=== PATIENT | male | born 1985 | race Two or more races ===

== ENCOUNTER 2017-09-19 17:31 | Emergency (ER) | payer BC, OTHER ==
[~2017-09-19] VITALS: Ht 167.6 cm; Wt 74.8 kg
[2017-09-19] MEDS ORDERED: IPRATROPIUM BROMIDE 0.5 MG/2.5 ML NEBU NEB ONE (18:15)
[2017-09-19] MEDS ORDERED: ALBUTEROL SULFATE 2.5 MG/3 ML NEBU NEB ONE (18:15)
--- NOTE | 2017-09-19 18:26 | NUR ---
Patient discharged to home in stable conditon. Written and verbal after care instructions given. Patient verbalizes understanding of instructions.PT WALKS IN STEADY GAIT. PT SAYS FEELS BETTER.
[2017-09-19 18:27] VITALS: BP 139/81
[2017-09-19] MEDS ORDERED: ALBUTEROL SULFATE 2.5 MG/3 ML NEBU ONE (18:28)
[2017-09-19] MEDS ORDERED: IPRATROPIUM BROMIDE 0.5 MG/2.5 ML NEBU ONE (18:28)
== END 2017-09-19 18:28 | disposition home or self-care (01) ==
LOC: ER 17:31
DX: J40 Bronchitis, not specified as acute or chronic (principal)
CPT/HCPCS: 94640; 99283; A4663; J3590